=== PATIENT | female | born 1965 | race African-American/Black ===

== ENCOUNTER 2017-06-02 14:43 | Inpatient (IN) | payer BC ==
[2017-06-02] MEDS ORDERED: 0.9 % SODIUM CHLORIDE 10 ML DISP.SYRIN. IV (16:15)
[2017-06-02] MEDS ORDERED: HYDROcodone/APAP 5/325MG 1 TAB TABLET PO (16:15)
[2017-06-02] MEDS ORDERED: ZOLPIDEM 5 MG TABLET. PO (16:15)
[2017-06-02] MEDS ORDERED: ONDANSETRON PF 4 MG/2 ML VIAL. IV (16:15)
[2017-06-02] MEDS: IPRATRPIUM/ALBUTEROL 0.5/2.5MG 3 ML NEBU. NEB ×2 (17:29→19:53)
[2017-06-02] MEDS: OSELTAMIVIR 75 MG CAPSULE PO (17:47)
[2017-06-02] MEDS: ACETAMINOPHEN 325 MG TABLET. PO (17:47)
[2017-06-02 18:49] LABS: INFLUENZA A PATIENT POSITIVE (NEGATIVE); INFLUENZA B PATIENT NEGATIVE (NEGATIVE); OBC FLU VALID
[2017-06-02] MEDS: DOCUSATE SODIUM 100 MG CAPSULE. PO (20:51)
[2017-06-02] MEDS: HEPARIN PF for SUB-Q USE 5,000 UNIT/0.5 ML VIAL. SQ (20:55)
[2017-06-02 21:57] LABS: BILIRUBIN,URINE NEGATIVE (NEG); CLARITY,URINE CLEAR; COLOR,URINE YELLOW; GLUCOSE,URINE NEGATIVE (NEG); NITRITE,URINE NEGATIVE (NEG); PH,URINE 5.5; PROTEIN,URINE NEGATIVE (NEG-TRACE); UROBILINOGEN,URINE 0.2 mg/dL (0.2 mg/dL)
[2017-06-02 22:06] LABS: BACTERIA,URINE FEW /HPF (0-FEW); RBC,URINE 0 /HPF (0-2); SQUAMOUS EPITHELIAL CELL,UR FEW /LPF
[2017-06-03 04:05] LABS: ADD MAN DIFF? NO
[2017-06-03 04:11] LABS: BASO % 0 % (0-3); EOS % 0 % (0-3); HEMATOCRIT 36.7 % (36.0-47.0); HEMOGLOBIN 12.2 g/dL (12.0-15.5); LYMPH # 2.1 x10^3/uL (1.0-4.8); LYMPH % 38 % (24-48); MEAN CORPUSCULAR HEMOGLOBIN 29 pg (25-35); MEAN CORPUSCULAR HGB CONC 33 g/dL (31-37); MEAN CORPUSCULAR VOLUME 86 fL (79-100); MONO # 0.6 x10^3/uL (0.0-1.1); MONO % 11 % (0-9); NEUT # 2.7 x10^3uL (1.8-7.7); NEUT % 51 % (31-73); PLATELET COUNT 166 x10^3/uL (140-400); RED BLOOD COUNT 4.27 x10^6/uL (3.50-5.40); RED CELL DISTRIBUTION WIDTH 14.2 % (11.5-14.5); WHITE BLOOD COUNT 5.4 x10^3/uL (4.0-11.0)
[2017-06-03] MEDS: IPRATRPIUM/ALBUTEROL 0.5/2.5MG 3 ML NEBU. NEB ×4 (07:21→20:01)
[2017-06-03 09:12] LABS: ALBUMIN/GLOBULIN RATIO 0.6 (1.0-1.7); ALK PHOS 69 U/L (46-116); ALT (SGPT) 26 U/L (14-59); ANION GAP 8 (6-14); AST (SGOT) 33 U/L (15-37); BLOOD UREA NITROGEN 17 mg/dL (7-20); BUN/CREATININE RATIO 19 (6-20); CALCIUM 8.3 mg/dL (8.5-10.1); CARBON DIOXIDE 26 mmol/L (21-32); CHLORIDE 105 mmol/L (98-107); CREATININE 0.9 mg/dL (0.6-1.0); GFR 79.3; GLUCOSE 97 mg/dL (70-99); POTASSIUM 4.2 mmol/L (3.5-5.1); SODIUM 139 mmol/L (136-145); TOTAL BILIRUBIN 0.3 mg/dL (0.2-1.0); TOTAL PROTEIN 8.1 g/dL (6.4-8.2)
[2017-06-03] MEDS: OSELTAMIVIR 75 MG CAPSULE PO ×2 (09:21→20:41)
[2017-06-03] MEDS: DOCUSATE SODIUM 100 MG CAPSULE. PO ×2 (09:21→20:41)
[2017-06-03] MEDS: HEPARIN PF for SUB-Q USE 5,000 UNIT/0.5 ML VIAL. SQ ×2 (09:28→20:50)
[2017-06-03] MEDS: ACETAMINOPHEN 325 MG TABLET. PO (20:41)
[2017-06-03] MEDS: PROMETH/CODEINE 6.25/10MG 5 ML SYRUP. PO (21:10)
[2017-06-04] MEDS: PROMETH/CODEINE 6.25/10MG 5 ML SYRUP. PO (08:44)
[2017-06-04] MEDS: OSELTAMIVIR 75 MG CAPSULE PO (08:46)
[2017-06-04] MEDS: HEPARIN PF for SUB-Q USE 5,000 UNIT/0.5 ML VIAL. SQ (08:46)
[2017-06-04] MEDS: DOCUSATE SODIUM 100 MG CAPSULE. PO (08:46)
[2017-06-04] MEDS: IPRATRPIUM/ALBUTEROL 0.5/2.5MG 3 ML NEBU. NEB ×2 (09:45→11:40)
== END 2017-06-04 14:24 | disposition home or self-care (01) | DRG 195 ==
LOC: 6 SOUTH 14:43
DX: J10.1 Influenza due to other identified influenza virus with other respiratory manifestations (principal); J84.10 Pulmonary fibrosis, unspecified; M06.9 Rheumatoid arthritis, unspecified; I73.00 Raynaud's syndrome without gangrene; Z90.710 Acquired absence of both cervix and uterus; Z87.891 Personal history of nicotine dependence; Z91.040 Latex allergy status; Z90.49 Acquired absence of other specified parts of digestive tract
CPT/HCPCS: 36415; 71046; 80053; 81001; 85025; 87040; 87086; 87186; 87804; 87804-59; 94640; 94760; J7620

== ENCOUNTER → 2021-05-18 | Outpatient (CLI) | payer OTHER ==
[2017-06-04 11:00] VITALS: BP 104/55
[~2021-05-18] MED LIST: AMLO-186 PO; CETI10TA16 PO; CHOL500016 PO; EMBREL; FINA5TAB4 PO; FOLI0.4T5 PO; METH2.5T PO; MONT10TA49 PO; MULT-496 PO; OSEL75CA PO; TOFA11TA PO
--- NOTE | 2021-05-18 16:11 | KCIC ---
AP and Lateral Views of the Chest 05/18/2021 3:43 PM Indication: Reason: CHRONIC PRODUCTIVE COUGH, INTERSTITIAL LUNG DISEASE, COVID 3 WEEKS AGO / Comparison: Chest radiograph June 02, 2017 Findings: There is chronic interstitial thickening with increased interstitial lung disease. In the r ight mid and upper lung there appears to be superimposed mild interstitial and patchy airspace opacit y. No pneumothorax or effusion is seen. Heart size is normal. No acute osseous changes are identified . IMPRESSION: Probable mild acute on chronic interstitial and alveolar opacities in the right mid and u pper lung which could represent a mild viral or atypical pneumonia Electronically signed by: Sawyer Carlton MD (05/18/2021 4:08 PM) [id number]
== END ==
LOC: KCIC 15:38
PROVIDERS: ATTEND Nurse Practitioner
DX: R91.8 Other nonspecific abnormal finding of lung field (principal); J84.89 Other specified interstitial pulmonary diseases; R05.9 Cough, unspecified
CPT/HCPCS: 71046